=== PATIENT | male | born 1970 | race Two or more races ===

== ENCOUNTER 2025-02-02 14:50 | Emergency (ER) | payer MEDICAID, SELFPAY ==
--- OUTSIDE RECORDS SUMMARY | 2024-02-08 05:15 | XMS_ITS ---
Author Organization [facility] vices Address [address] [place], [place] [id number] Care Team Providers Care Entry Level Machine Operator Name Role Phone Trina Richardson Unavailable [phone] Chiquis Brito Unavailable [phone] REASON FOR VISIT 3 wk fu htn Social History Sex Assigned At : Social History Observation Description Sex Assigned At Male Encounters Encounter Location Date Provider Diagnosis [address] [address] 02/08/2024 Chiquis Brito Plan Of Treatment No Information Progress Notes * Brendan WILLsDOB:[birth year] (54 yo M)Acc No.[id number]:02/08/2024 Medical Note Patient: Rogelio HAMPTON :?Chiquis Brito MDDOB:1970???Age:53 Y???Sex: MaleDate:4Phone:[phone]:[address] [place] [address] Subjective: * Chief Complaints: * 1 . 3 wk fu htn. * Medical History: Objective: * Vitals: Assessment: Plan: * Treatment: * Billing Information: * Visit Code: * Procedure Codes: * Electronic signature of Chiquis Brito MD on 02/02/2025 at 03:37 PM EDTSign off status: Pending * Provider: Daniele Brito MD Date: 1 Generated for Printing/Faxing/eTransmitting on:?02/02/2025 03:37 PM EDT
--- OUTSIDE RECORDS SUMMARY | 2024-05-14 04:45 | XMS_ITS ---
Author Organization [facility] vices Address [address] [place] [id number] Care Team Providers Care Torch Cutter Name Role Phone Trina Richardson Unavailable [phone] Chiquis Brito Unavailable [phone] REASON FOR VISIT 3 mo f/u htn / hld Social History Sex Assigned At : Social History Observation Description Sex Assigned At Male Encounters Encounter Location Date Provider Diagnosis [address] [address] 05/14/2024 Chiquis Brito Plan Of Treatment No Information Progress Notes * Brendan WILLsDOB:[birth year] (54 yo M)Acc No.[id number]:05/14/2024 Patient:Rogelio LOPEZ :?Chiquis Brito MDDOB:1970???Age:53 Y???Sex: MaleDate:05/14/2024Phone:[phone]:[address] [place], [place] [address] Subjective: * Chief Complaints: * 1 . 3 mo f/u htn / hld. * Medical History: Objective: * Vitals: Assessment: Plan: * Treatment: * Billing Information: * Visit Code: * Procedure Codes: * Electronic signature of Chiquis Brito MD on 02/02/2025 at 03:37 PM EDTSign off status: Pending * Provider: Daniele Brito MD Date: 0 05/14/2024 Generated for Printing/Faxing/eTransmitting on:?02/02/2025 03:37 PM EDT
--- OUTSIDE RECORDS SUMMARY | 2024-05-16 04:45 | XMS_ITS ---
Author Organization [facility] vices Address [address] [place], [place] [phone] Care Team Providers Care Panel Edge Sealer Name Role Phone Trina Richardson Unavailable [phone] Chiquis Brito Unavailable [phone] REASON FOR VISIT 3 month f/u htn/hld Social History Sex Assigned At : Social History Observation Description Sex Assigned At Male Encounters Encounter Location Date Provider Diagnosis [address] [address] 05/16/2024 Chiquis Brito Plan Of Treatment No Information Progress Notes * Alphonse WILLpablitosDOB:[birth year] (54 yo M)Acc No.[id number]:05/16/2024 Medical Note Patient: Rogelio HAMPTON :?SEKOU IbanezOB:1970???Age:53 Y???Sex: MaleDate:05/16/2024Phone:[phone]:[address] [place], [place] [address] Subjective: * Chief Complaints: * 1 . 3 month f/u htn/hld. * Medical History: Objective: * Vitals: Assessment: Plan: * Treatment: * Billing Information: * Visit Code: * Procedure Codes: * Electronic signature of Chiquis Brito MD on 02/02/2025 at 03:37 PM EDTSign off status: Pending * Provider: Daniele Brito MD Date: 0 05/16/2024 Generated for Printing/Faxing/eTransmitting on:?02/02/2025 03:37 PM EDT
--- OUTSIDE RECORDS SUMMARY | 2025-01-27 19:06 | XMS_ITS | Encounter Summary ---
Author Organization [facility] Address [id number] [address] 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 Role Phone No Pcp, No Pcp Primary Care Provider Unavailabl e Reason for Visit * ReasonCommentsChest Pain Encounter Details DateTypeDepartmentCare Team (Latest Contact Info)Dgagmozhqgh47/20/2025 7:06 PM EDT - 01/27/2025 11:31 PM EDTEmergency [facility] [address] [place] [address] Charbel Colin MD [address] [place] [address] Musculoskeletal chest pain (Primary Dx) Discharge Disposition: Home Social History Tobacco UseTypesPacks/DayYears UsedDateSmoking Tobacco: Every DayCigarettesLast attempted to quit: 2019Smokeless Tobacco: NeverAlcohol UseStandard Drinks/Week CommentsYes0 (1 standard drink = 0.6 oz pure alcohol)occasionalChildcareAnswer Date AazffwecEsbrjdxauQibggod47/12/2019EmploymentAnswerDate RecordedEmployment Oftlbya9709/19/2018Hunger ScreeningAnswerDate RecordedWithin the past 12 months we worried whether our food would run out before we got money to buy more.Never True01/27/2025Within the past 12 months the food we bought just didn't last and we didn't have money to get more.Never True01/27/2025Purpose - LifeAnswerDate RecordedPurpose and direction in bpiaSdkuacb65/11/2021ex and Gender Information ValueDate RecordedSex Assigned at BirthNot on fileLegal EngGvvo6511/13/2014 11:40 AM EDTGender IdentityNot on fileSexual OrientationNot on filedocumented as of this encounter Last Filed Vital Signs Vital SignReadingTime TakenCommentsBlood Juksskdz143/9201/27/2025 11:31 PM EDT Ncfss047101/27/2025 11:31 PM CILXsbxbjkmghs29.7 ??C (98.1 ??F)01/27/2025 6:34 PM EDTRespiratory Tova0927 11:31 PM EDTOxygen Kpvdseqajh57%01/27/2025 11:31 PM EDTInhaled Oxygen Concentration--Rxdcys655.9 kg (260 lb)01/27/2025 6:34 PM QCTVlrlkg439.7 cm (5' 8 )01/27/2025 6:34 PM EDTBody Mass Index39.5301/27/2025 6:34 PM EDTdocumented in this encounter Discharge Instructions * Discharge Instructions* Charbel Colin MD - 01/27/2025 11:20 PM EDT Please follow up with primary care physician and action finisher documented in this encounter Medications at Time of Discharge MedicationSigDispense QuantityRefillsLast FilledStart DateEnd Date albuterol (PROVENTIL HFA;VENTOLIN HFA) 90 mcg/actuation inhaler Inhale 2 puffs every 6 (six) hours as needed for wheezing. aspirin 81 mg Take 1 tablet (81 mg total) by mouth daily. 30 tablet 08/29/2020 busPIRone (BUSPAR) 30 mg tablet Take 30 mg by mouth 2 (two) times a day. ibuprofen (MOTRIN) 600 mg tablet Take 1 tablet (600 mg total) by mouth every 8 (eight) hours as needed for pain for up to 7 days. 21 tablet latanoprost (XALATAN) 0.005 % ophthalmic solution Administer 1 drop to both eyes nightly. losartan (COZAAR) 25 mg tablet Take 25 mg by mouth daily. OLANZapine (ZyPREXA) 10 mg tablet Take 10 mg by mouth nightly. OLANZapine (ZyPREXA) 5 mg tablet Take 5 mg by mouth daily. In the morning. ondansetron ODT (ZOFRAN-ODT) 4 mg disintegrating tablet Dissolve 1 tablet (4 mg total) on tongue every 8 (eight) hours as needed for nausea for up to 10 doses. 10 tablet 1documented as of this encounter ED Notes * Ev Gonzalez APRN-FERN - 01/27/2025 7:07 PM EDT Images from the original note were not included. [facility] - EMERGENCY Pt Name: Rogelio Will Birthdate: 1970 Chief Complaint: Chief Complaint Patient presents with ??? Chest Pain History of Present Illness: Rogelio Will is a 54-year-old male that presents to ED with complaint of chest pain. Patient states it started on Monday. States that he was changing a battery in the car. He reports after that he had left-sided chest wall pain that went into his side and back. He states the pain has progressively gotten worse. He states it was worse this afternoon when he coughed therefore he came in to be evaluated. Denies any shortness of breath. Denies any nausea or vomiting. Has an ice pack on his chest at this time. History provided by: Patient print journalist used: No Past Medical History: Past Medical History: Diagnosis Date ??? Abscess ??? Alcohol abuse ??? Alcohol dependence ([facility]) ??? Anxiety ??? Bipolar disorder ([facility]) ??? Cholelithiasis ??? Costochondritis ??? Depression ??? Diverticulitis ??? Diverticulitis of colon ??? Drug abuse ([facility]) ??? GERD (gastroesophageal reflux disease) ??? Glaucoma ??? Glaucoma ??? Headache ??? Hypertension ??? Insomnia ??? Kidney stones ??? Liver hemangioma ??? Nightmares associated with chronic post-traumatic stress disorder ??? Visual impairment ??? Wound abscess Past Surgical History: Past Surgical History: Procedure Laterality Date ??? CHOLECYSTECTOMY ??? INCISION AND DRAINAGE SCROTUM N/A 08/23/2016 Performed by Boby Fletcher MD at [facility] Family History: Family History Problem Relation Age of Onset ??? Diabetes Father ??? Hypertension Father ??? Breast cancer Mother Social History: Social History Socioeconomic History ??? Marital status: Legally Tobacco Use ??? Smoking status: Every Day Current packs/day: 0.00 Types: Cigarettes Last attempt to quit: 2019 Years since quittin.8 ??? Smokeless tobacco: Never Vaping Use ??? Vaping status: Former Substance and Sexual Activity ??? Alcohol use: Yes Comment: occasional ??? Drug use: Yes Types: Cocaine Comment: last use of cocaine 2 days Other Topics Concern ??? Caffeine Use Yes Social Drivers of Health Food Insecurity: No Food Insecurity (01/27/2025) Hunger Screening ??? Food Insecurity - Worry: Never True ??? Food Insecurity - Inability: Never True Review of Systems: Review of Systems Constitutional: Negative for chills and fever. HENT: Negative for ear pain. Eyes: Negative for pain. Respiratory: Negative for shortness of breath. Cardiovascular: Positive for chest pain/discomfort. Gastrointestinal: Negative for abdominal pain, diarrhea, nausea and vomiting. Genitourinary: Negative for flank pain. Musculoskeletal: Negative for back pain. Skin: Negative for rash. Neurological: Negative for headaches. Psychiatric/Behavioral: Negative for sleep disturbance and suicidal ideas. Physical Exam: ED Triage Vitals [01/27/251833] Temp Heart Rate Resp BP SpO2 36.7 ??C (98.1 ??F) 92 19 (!) 168/103 97 % Temp Source Heart Rate Source Patient Position BP Location FiO2 (%) Oral -- Sitting Left arm -- Vitals: 01/27/251833 BP: (!) 168/103 Temp: 36.7 ??C (98.1 ??F) TempSrc: Oral Pulse: 92 Resp: 19 SpO2: 97% MAP (mmHg): 121 Height: 172.7 cm (5' 8 ) Weight: 117.9 kg (260 lb) Physical Exam Vitals reviewed. HENT: Head: Normocephalic and atraumatic. Eyes: Conjunctiva/sclera: Conjunctivae normal. Cardiovascular: Rate and Rhythm: Normal rate and regular rhythm. Pulmonary: Effort: Pulmonary effort is normal. Breath sounds: Normal breath sounds. Abdominal: General: There is no distension. Palpations: Abdomen is soft. Musculoskeletal: General: Normal range of motion. Cervical back: Normal range of motion and neck supple. Skin: General: Skin is warm and dry. Neurological: General: No focal deficit present. Mental Status: He is alert and oriented to person, place, and time. GCS: GCS eye subscore is 4. GCS verbal subscore is 5. GCS motor subscore is 6. Procedure: Procedures Re-evaluation: Re-Evaluation Medical Decision Making Plan of care - EKG, imaging, labs, urine, pain management Amount and/or Complexity of Data Reviewed Labs: ordered. Decision-making details documented in ED Course. Radiology: ordered. Decision-making details documented in ED Course. ECG/medicine tests: ordered. Decision-making details documented in ED Course. Risk Prescription drug management. ED Course: ED Course as of 01/27/252317Jan 27, 20251899 I reviewed the EKG: Sinus rhythm, rate 92, NY 172, QTC 447. No ST or T-wave changes to indicate acute ischemia at this time. [NM] 2012 Patient is 54 years old male presented for left chest pain evaluation that started 2 days ago when he sneezed. Patient stated the pain is continuous. Patient stated the pain increase with left arm movement. Physical examination: Left anterior ribcage tenderness. [NM] 2151 I reviewed the EKG: Sinus rhythm, rate 95, NY 187, QTC 438. [NM] 2315 CT chest: No active process [NM] 2315 Troponin within normal limits [NM] 2315 Dimer within normal limits [NM] 2317 Discussed workup results with the patient. Patient stated he is feeling much better. Pain resolved. Patient requested to be discharged. Patient will be discharged home with Motrin. [NM] ED Course User Index [NM] Charbel Colin MD Clinical Impressions as of 01/27/258 Musculoskeletal chest pain . ED Disposition None Shared/Split Visit 20:11 EDT Svetlana Oropeza (scribe), scribed for and in the presence of: Charbel Colin MD who performed the above service. IDr. Colin personally performed a xzgb-pd-xqee diagnostic evaluation on this patient. I personally made and approved the management plan for this patient and take responsibility for the patient management. Additional Notes/Findings: Rogelio Will is a 54 y.o. male presenting to the ED for chief complaint of chest pain that started Monday morning. He changed the car battery and heard a pop. Dr. Colin suggest getting an image of the pts ribs. Exam findings as follows: Constitutional: Awake and alert HENT: Head normocephalic and atraumatic Eyes: conjunctiva unremarkable Cardiovascular: Heart rate regular Pulmonary: Easy work of breathing, speaking full sentences Abdominal: Flat and non-distended Skin: Warm and dry Musculoskeletal: Moving all extremities spontaneously. Pain when moving left arm above head. Tenderness to left ribs Neurological: alert and oriented x3 Please note that portions of this note were completed with a voice recognition program. Efforts were made to edit the dictations but occasionally words are mis-transcribed. TATYANA Evans 01/27/251910 TATYANA Evans 01/27/251916 Svetlana Wilder 01/27/252012 Svetlana Wilder 01/27/252013 TATYANA Evans 01/29/25 1610 * Breezy Pyle - 01/27/2025 6:38 PM EDT Pt states he was working on a car Monday when his chest started hurting. It has gotten worse since then documented in this encounter Plan of Treatment Not on file documented as of this encounter Goals GoalPatient Goal TypeAssociated ProblemsRecent ProgressPatient-Stated?Author Kerri Ordonez dc, LSW Note: Evaluation of progress towards goal: Dakota arias transition from hospital to home with family support. documented as of this encounter Procedures Procedure NamePriorityDate/TimeAssociated DiagnosisCommentsER EXTRA URINE MARBLE STAT1 10:29 PM EDT ER EXTRA URINE UWELCFHHNPJ96/20/2025 10:29 PM EDT ER EXTRA OTZAWLIHQ85/20/2025 10:29 PM EDT POCT NURSING URINE MACROSCOPIC IZLmdaxcv33/20/2025 10:[address] CHEST W ZFLZKLWY05/20/2025 10:24 PM EDT XR RIBS LT 2 QFHHCYQ78/20/2025 8:28 PM EDT TROP I, HIGH SENSITIVITY 1 ADBBUZLJ83/20/2025 8:16 PM EDT XR CHEST 1 SJSJZR2101/27/2025 7:26 PM EDT TROPONIN I, HIGH SENSITIVITY 0 ORABXLZF81/20/2025 7:16 PM EDT TROPONIN I, HIGH SENSITIVITY 0 WFSOVTLR99/20/2025 7:16 PM EDT FHOXUCMK41/20/2025 7:16 PM EDT PROTIME & EOUGHMA8801/27/2025 7:16 PM EDT D-AIBIYCQUZ10/20/2025 7:16 PM EDT SYGOJOGPTVKVF34/20/2025 7:16 PM EDT CEWVVWOUJO21/20/2025 7:16 PM EDT COMPREHENSIVE METABOLIC RCDHNUQTA42/20/2025 7:16 PM EDT CBC WITH AUTO AZGVLNDYNPYPRORG66/20/2025 7:15 PM EDT B-TYPE NATRIURETIC HKCBSQGKPFZ62/20/2025 7:15 PM EDT documented in this encounter Results * Extra Urine Crystal (01/27/2025 10:29 PM EDT)ComponentValueRef RangeTest Method Analysis TimePerformed AtPathologist SignatureExtra TubeAuto Resulted 01/28/2025 12:02 AM [facility] (Source) Anatomical Location / LateralityCollection Method / VolumeCollection Time Received TimeUrineUrine specimen collection, clean catch / Rqxtubv4601/27/2025 10:29 PM EDT1 10:51 PM EDT Narrative Authorizing ProviderResult TypeResult StatusAmber Carlos ASSOCIATE TEAM PHYSICIAN-CNPURINE ORDERABLESFinal ResultPerforming OrganizationAddressCity/State/ZIP CodePhone Number [address] [place] [address], [place] * Extra Urine Culture (01/27/2025 10:29 PM EDT)ComponentValueRef RangeTest MethodAnalysis TimePerformed AtPathologist SignatureExtra TubeAuto Resulted 01/28/2025 12:02 AM EDCh[facility] (Source) Anatomical Location / LateralityCollection Method / VolumeCollection Time Received TimeUrineUrine specimen collection, clean catch / Idtcvau3901/27/2025 10:29 PM EDT1 10:51 PM EDT Narrative Authorizing ProviderResult TypeResult StatusAmber Carlos ASSOCIATE TEAM PHYSICIAN-CNPURINE ORDERABLESFinal ResultPerforming OrganizationAddressty/State/ZIP CodePhone Number [address] [place] [address], [place] * Extra Urine (01/27/2025 10:29 PM EDT)ComponentValueRef RangeTest Method Analysis TimePerformed AtPathologist SignatureExtra TubeAuto Resulted 01/28/2025 12:02 AM EDCh[facility] (Source) Anatomical Location / LateralityCollection Method / VolumeCollection Time Received TimeUrineUrine specimen collection, clean catch / Vbmyjym7801/27/2025 10:29 PM EDT1 10:52 PM EDT Narrative Authorizing ProviderResult TypeResult StatusAmber Gonzalez ASSOCIATE TEAM PHYSICIAN-CNPURINE ORDERABLESFinal ResultPerforming OrganizationAddressty/State/ZIP CodePhone Number [address] [place] [address], [place] * (ABNORMAL) POCT Nursing Urine Macroscopic UA (01/27/2025 10:28 PM EDT) ComponentValueRef RangeTest MethodAnalysis TimePerformed AtPathologist [facility] Urine Specific Gravity1.0201.010, 1.015, 1.020, 1.2715701/27/2025 10:29 PM [facility] Urine Leukocyte Esterase FjbhhjyiScgqltoy23/20/2025 10:29 PM EDPRE[facility] Urine ZuvlxuxYizryoypMdwqxewm32/20/2025 10:29 PM [facility] Urine pH6.55.0, 6.0, 6.5, 7.0, 7.5, 8.0, 8.5, 5. 10:29 PM [facility] Urine Ytupmae12 mg/dL(A)Negative 01/27/2025 10:29 PM EDPRE[facility] Urine Glucose HaswomguCgweuxyd63/20/2025 10:29 PM [facility] Urine KetonesTrace(A)Tljahqvx40/20/2025 10:29 PM [facility] Urine Urobilinogen2.0 E.U./dL01/27/2025 10:29 PM EDPRE[facility] Urine XaxuodoydUjdwwxluUtnwmjcj90/20/2025 10:29 PM [facility] Urine Blood/HGBNegativeNegative 01/27/2025 10:[address] [facility] (Source) Anatomical Location / LateralityCollection Method / VolumeCollection Time Received KaivBkxft84/20/2025 10:28 PM EDT1 10:29 PM EDT Narrative Authorizing ProviderResult TypeResult StatusNahil H Cristi MDPOINT OF CARE TEST ORDERABLESFinal ResultPerforming OrganizationAddressCity/State/ZIP CodePhone Number [facility] [address] [place] [address], [place] * CT chest with contrast (01/27/2025 10:24 PM EDT)Anatomical RegionLaterality ModalityBody, Lung, Chest, Body CoveraN/AComputed TomographySpecimen (Source) Anatomical Location / LateralityCollection Method / VolumeCollection Time Received Time01/27/2025 10:41 PM EDT Narrative 01/27/2025 10:43 PM EDT STUDY: CT chest with contrast CLINICAL HISTORY: Acute chest pain chest pain COMPARISON: 08/28/2020 TECHNIQUE: CT chest was performed utilizing 5 mm axial reconstructions following the uneventful administration of 100 cc Omnipaque 300 nonionic intravenous contrast. Coronal and sagittal reformatted images were obtained and reviewed. Automated exposure control was utilized. FINDINGS: No pleural or pericardial effusion. No enlarged axillary, mediastinal or hilar lymph nodes. Atherosclerotic thoracic aorta. Mild coronary artery calcifications. Dependent changes and atelectasis in both lungs. There is no pneumothorax. The central airway appears be patent. Hypervascular lesion in the anterior left hepatic lobe which could represent transient hepatic attenuation difference or flash filling hemangioma. Small right hepatic cyst. No vertebral body height loss. Degenerative changes of the spine. Probable small nonobstructing left renal calculi. IMPRESSION: 1. No definitive acute cardiopulmonary process. All CT scans at this facility use dose modulation, iterative reconstruction, and/or weight based dosing when appropriate to reduce radiation dose to as low as reasonably achievable. Finalized by Aravind Dugan MD on 01/27/2025 10:43 PM Procedure Note Aravind Dugan MD - 01/27/2025 STUDY: CT chest with contrast CLINICAL HISTORY: Acute chest pain chest pain COMPARISON: 08/28/2020 TECHNIQUE: CT chest was performed utilizing 5 mm axial reconstructionsfollowing the uneventful administration of 100 cc Omnipaque 300 nonionicintravenous contrast. Coronal and sagittal reformatted images wereobtained and reviewed. Automated exposure control was utilized. FINDINGS: No pleural or pericardial effusion. No enlarged axillary, mediastinal orhilar lymph nodes. Atherosclerotic thoracic aorta. Mild coronary artery calcifications. Dependent changes and atelectasis in both lungs. There is no pneumothorax.The central airway appears be patent. Hypervascular lesion in the anterior left hepatic lobe which couldrepresent transient hepatic attenuation difference or flash fillinghemangioma. Small right hepatic cyst. No vertebral body height loss. Degenerative changes of the spine. Probable small nonobstructing left renal calculi. IMPRESSION: 1. No definitive acute cardiopulmonary process. All CT scans at this facility use dose modulation, iterativereconstruction, and/or weight based dosing when appropriate to reduceradiation dose to as low as reasonably achievable. Finalized by Aravind Dugan MD on 01/27/2025 10:43 PM Authorizing ProviderResult TypeResult StatusAmber [facility] ORDERABLESFinal Result * X-ray ribs left 2 views (01/27/2025 8:28 PM EDT)Anatomical RegionLaterality ModalityMSK, ChestLeftComputed RadiographySpecimen (Source)Anatomical Location / LateralityCollection Method / VolumeCollection TimeReceived Time01/27/2025 9:08 PM EDT Addenda Addendum by Colten Wood MD on 01/27/2025 9:20 PM EDT *ADDENDUM*Images are further reviewed. Further reviewed of the images reveal overlapping of the left third rib laterally which appears to be overlying the scapula. This could be a fracture of the indeterminate age. Findings were discussed with the ER physician. I advised to perform CT scan of the chest with contrast for further evaluation of the fracture and any vascular injury. Finalized by Colten Wood MD on 01/27/2025 9:20 PM Narrative 01/27/2025 9:10 PM EDT HISTORY: A 54-year-old male with a history of the left-sided upper rib pain. TECHNIQUE: ??Left rib cage: 2 views COMPARISON: ??Comparison is made with the right rib cage of 03/02/2020. FINDINGS: AP and oblique views of the left rib cage reveal no fractures or acute bony pathology. ??Left rib cage is intact. Visualized both lungs are clear. Costophrenic angles are clear. IMPRESSION: * ??No evidence of fracture or acute bony pathology in the left rib cage. Finalized by Colten Wood MD on 01/27/2025 9:10 PM Procedure Note Colten Wood MD - 01/27/2025 HISTORY: A 54-year-old male with a history of the left-sided upper ribpain. TECHNIQUE: Left rib cage: 2 views COMPARISON: Comparison is made with the right rib cage of 03/02/2020. FINDINGS: AP and oblique views of the left rib cage reveal no fractures oracute bony pathology. Left rib cage is intact. Visualized both lungs are clear. Costophrenic angles are clear. IMPRESSION: * No evidence of fracture or acute bony pathology in the left rib cage. Finalized by Colten Wood MD on 01/27/2025 9:10 PM Authorizing ProviderResult TypeResult StatusAmber Carlos SHI-CNPIMG DIAGNOSTIC IMAGING ORDERABLESEdited Result - Final * Troponin I, High Sensitivity 1 Hour (01/27/2025 8:16 PM EDT)ComponentValueRef RangeTest MethodAnalysis TimePerformed AtPathologist SignatureTROPONIN I, HIGH SENSITIVITY4<21 ng/L1 8:48 PM EDTPROMEDSAN FRANC[facility]CO [facility] Specimen (Source)Anatomical Location / LateralityCollection Method / Volume Collection TimeReceived TimeBloodVenous blood / UnknownVenipuncture / Unknown 01/27/2025 8:16 PM EDT1 8:20 PM EDT Narrative Authorizing ProviderResult TypeResult StatusAmber Carlos SHI-CNPLAB BLOOD ORDERABLESFinal ResultPerforming OrganizationAddressCity/State/ZIP CodePhone Number [facility] [address] [place] [address], * X-ray chest 1 view (01/27/2025 7:26 PM EDT)Anatomical RegionLateralityModality Body, ChestN/AComputed RadiographySpecimen (Source)Anatomical Location / LateralityCollection Method / VolumeCollection TimeReceived Time01/27/2025 7:41 PM EDT Narrative 01/27/2025 7:46 PM EDT XR CHEST 1 VW HISTORY: Chest pain COMPARISON: 01/15/2024 FINDINGS: Patient is rotated to the right. Apical lordotic patient positioning. No pleural effusion, pneumothorax, or focal airspace opacification. Mildly enlarged cardiac mediastinal silhouette. IMPRESSION: * ??No evidence for acute pulmonary process. * ??Mildly enlarged cardiomediastinal silhouette, likely exaggerated by patient positioning and portable technique. Approved by Resident: Ulises Cross MD ??on 01/27/2025 7:41 PM Colten Oropeza MD have personally reviewed the image(s) and agree with and/or edited the report Finalized by Colten Wood MD on 01/27/2025 7:46 PM Procedure Note Colten Wood MD - 01/27/2025 XR CHEST 1 VW HISTORY: Chest pain COMPARISON: 01/15/2024 FINDINGS: Patient is rotated to the right. Apical lordotic patient positioning. No pleural effusion, pneumothorax, or focal airspace opacification. Mildly enlarged cardiac mediastinal silhouette. IMPRESSION: * No evidence for acute pulmonary process. * Mildly enlarged cardiomediastinal silhouette, likely exaggerated bypatient positioning and portable technique. Approved by Resident: Ulises Cross MD on 01/27/2025 7:41PM Colten Oropeza MD have personally reviewed the image(s) and agree withand/or edited the report Finalized by Colten Wood MD on 01/27/2025 7:46 PM Authorizing ProviderResult TypeResult StatusAmber Carlos ASSOCIATE TEAM PHYSICIAN-CNPIMG DIAGNOSTIC IMAGING ORDERABLESFinal Result * Troponin I, High Sensitivity 0 Hour (01/27/2025 7:16 PM EDT)ComponentValueRef RangeTest MethodAnalysis TimePerformed AtPathologist SignatureTROPONIN I, HIGH SENSITIVITY3<21 ng/L1 7:53 PM EDTPROMEDICA [facility] Specimen (Source)Anatomical Location / LateralityCollection Method / Volume Collection TimeReceived TimeBloodVenous blood / UnknownVenipuncture / Unknown 01/27/2025 7:16 PM EDT1 7:17 PM EDT Narrative Authorizing ProviderResult TypeResult StatusAmber Carlos ASSOCIATE TEAM PHYSICIAN-CNPLAB BLOOD ORDERABLESFinal ResultPerforming OrganizationAddressCity/State/ZIP CodePhone Number [facility] [address] [place] [address], * Magnesium (01/27/2025 7:16 PM EDT)ComponentValueRef RangeTest MethodAnalysis TimePerformed AtPathologist SignatureMAGNESIUM2.11.8 - 2.6 mg/dL01/27/2025 7:45 PM EDST. RITA'S HOSPITALpecimen (Source)Anatomical Location / LateralityCollection Method / VolumeCollection TimeReceived Time BloodVenous blood / UnknownVenipuncture / Czxhmqg8401/27/2025 7:16 PM EDT 01/27/2025 7:17 PM EDT Narrative Authorizing ProviderResult TypeResult StatusAmber Gonzalez ASSOCIATE TEAM PHYSICIAN-CNPLAB BLOOD ORDERABLESFinal ResultPerforming OrganizationAddressty/State/ZIP CodePhone Number [address] [place] [address], * Lipase (01/27/2025 7:16 PM EDT)ComponentValueRef RangeTest MethodAnalysis Time Performed AtPathologist SlttdxobnBOPEMX4280 - 40 U/L1 7:42 PM EDT [facility] (Source)Anatomical Location / LateralityCollection Method / VolumeCollection TimeReceived TimeBloodVenous blood / UnknownVenipuncture / Egwwgxx2601/27/2025 7:16 PM EDT1 7:17 PM EDT Narrative Authorizing ProviderResult TypeResult StatusAmber Gonzalez ASSOCIATE TEAM PHYSICIAN-CNPLAB BLOOD ORDERABLESFinal ResultPerforming OrganizationAddJefferson Hospital/[facility] CodePhone Number [address] [place] [address], [place] * D-Dimer (01/27/2025 7:16 PM EDT)ComponentValueRef RangeTest MethodAnalysis TimePerformed AtPathologist SignatureD [id number] - 255 ng/mL01/27/2025 7:29 PM EDFIRELANDS REGIONAL MED[facility]OUTH CAMPUSComment:Results <255 ng/mL DDU: The presensence of a VTE can safely be excluded with a negative D-Dimer result and Wells score. A negative result doesn't exclude the possibility of DIC. The test should berepeated along with other diagnostic tests if the patient's symptoms persist or worsen.Specimen (Source)Anatomical Location / Laterality Collection Method / VolumeCollection TimeReceived TimeBloodVenous blood / UnknownVenipuncture / Ostqfep1101/27/2025 7:16 PM EDT1 7:17 PM EDT Narrative Authorizing ProviderResult TypeResult StatusAmber Carlos ASSOCIATE TEAM PHYSICIAN-CNPLAB BLOOD ORDERABLESFinal ResultPerforming OrganizationAddressCity/State/ZIP CodePhone Number [address] [place] [address], * APTT (01/27/2025 7:16 PM EDT)ComponentValueRef RangeTest MethodAnalysis Time Performed AtPathologist OiouzfxegEAXG6699 - 37 sec01/27/2025 7:29 PM EDT [facility] (Source)Anatomical Location / LateralityCollection Method / VolumeCollection TimeReceived TimeBloodVenous blood / UnknownVenipuncture / Ppedema8501/27/2025 7:16 PM EDT1 7:17 PM EDT Narrative Authorizing ProviderResult TypeResult StatusAmber Gonzalez ASSOCIATE TEAM PHYSICIAN-CNPLAB BLOOD ORDERABLESFinal ResultPerforming OrganizationAddressCity/State/ZIP CodePhone Number [address] [place] [address], * Protime & INR (01/27/2025 7:16 PM EDT)ComponentValueRef RangeTest Method Analysis TimePerformed AtPathologist UznbdejdmABSQVCT42.09.8 - 13.2 sec 01/27/2025 7:29 PM EDFIRELANDS REGIONAL MEDICAL CENTER SOUTH CAMPUSINR1.00.9 - 1.2 01/27/2025 7:29 PM [facility] (Source) Anatomical Location / LateralityCollection Method / VolumeCollection Time Received TimeBloodVenous blood / UnknownVenipuncture / Qzslrbv2501/27/2025 7:16 PM EDT1 7:17 PM EDT Narrative Authorizing ProviderResult TypeResult StatusAmber Gonzalez ASSOCIATE TEAM PHYSICIAN-CNPLAB BLOOD ORDERABLESFinal ResultPerforming OrganizationAddressCity/State/ZIP CodePhone Number [address] [place] [address], * (ABNORMAL) Comprehensive metabolic panel (01/27/2025 7:16 PM EDT)Component ValueRef RangeTest MethodAnalysis TimePerformed AtPathologist SignatureSODIUM [id number] - 146 mmol/L1 7:45 PM EDTPTRIHEALTH POTASSIUM3.93.5 - 5.0 mmol/L1 7:45 PM EDFIRELANDS REGIONAL MEDICAL C[facility] SOUTH CAMPUSCHLORIDE10398 - 109 mmol/L1 7:45 PM EDFIRELANDS REGIONAL MEDICAL [facility] SOUTH CAMPUSCARBON VEXQRYZ3062 - 32 mmol/L1 7:45 PM EDFIRELANDS REGIONAL MED[facility] SOUTH CAMPUSANION ZHF129 - 15 mmol/L1 7:45 PM EDT [facility]ENTERBLOOD UREA JNSDKPVR681 - 23 mg/dL01/27/2025 7:45 PM EDFIRELANDS REGIONAL MEDICAL C[facility] SOUTH CAMPUSCREATININE0.860.70 - 1.20 mg/dL 01/27/2025 7:45 PM [facility]Comment:METHOD TRACEABLE TO IDMS JURMPZWFFVGUZZO541(H)65 - 99 mg/dL01/27/2025 7:45 PM EDT [facility] CENTERCALCIUM8.78.5 - 10.5 mg/dL01/27/2025 7:45 PM EDFIRELANDS REGIONAL MEDICAL [facility] SOUTH CAMPUSTOTAL PROTEIN7.66.0 - 8.0 g/dL 01/27/2025 7:45 PM EDFIRELANDS REGIONAL MEDICAL CENTER SOUTH CAMPUSALBUMIN4.03.2 - 5.3 g/dL01/27/2025 7:45 PM EDFIRELANDS REGIONAL MED[facility] C[facility] SOUTH CAMPUSALKALINE TSVQTYLHZBE72170 - 130 U/L1 7:45 PM [facility]ITALAST30<=41 U/L1 7:45 PM EDFIRELANDS [facility]US ALT41(H)<=40 U/L1 7:45 PM [facility] BILIRUBIN,TOTAL0.40.3 - 1.2 mg/dL01/27/2025 7:45 PM EDFIRELANDS REGIONAL MEDICAL CENTER SOUTH CAMPUSEGFR Non-Race Dependent>90>=60 ml/min/1.73sq.m1 7:45 PM [facility]ITALComment: eGFR not reported due to non-numeric value for Creatinine. Reported eGFR is based on the CKD-EPI 2020 equation that does not use a race coefficient. Specimen (Source)Anatomical Location / LateralityCollection Method / Volume Collection TimeReceived TimeBloodVenous blood / UnknownVenipuncture / Unknown 01/27/2025 7:16 PM EDT1 7:17 PM EDT Narrative Authorizing ProviderResult TypeResult StatusAmber Carlos ASSOCIATE TEAM PHYSICIAN-CNPLAB BLOOD ORDERABLESFinal ResultPerforming OrganizationAddressCity/State/ZIP CodePhone Number [address] [place] [address], [place] * B-type natriuretic peptide (01/27/2025 7:15 PM EDT)ComponentValueRef RangeTest MethodAnalysis TimePerformed AtPathologist BceqtsyauSUH66<=100 pg/mL 01/27/2025 8:[address] [facility]pecimen (Source) Anatomical Location / LateralityCollection Method / VolumeCollection Time Received TimeBloodVenous blood / UnknownVenipuncture / Rxduweu9701/27/2025 7:15 PM EDT1 7:17 PM EDT Narrative Authorizing ProviderResult TypeResult StatusAmber Carlos CARRINGTONN-CNPLAB BLOOD ORDERABLESFinal ResultPerforming OrganizationAddressty/[facility] CodePhone Number [address] [place] [address], [place] * (ABNORMAL) CBC auto differential (01/27/2025 7:15 PM EDT)ComponentValueRef RangeTest MethodAnalysis TimePerformed AtPathologist ZsiofavlvOBO51.54 - 11 x10E9/L1 7:24 PM EDFIRELANDS REGIONAL MEDICAL CENTER SOUTH CAMPUSRBC Count5.31 4.1 - 5.7 X10E12/L1 7:24 PM EDTPTRIHEALTH Zwnbnuflam72.113 - 17 g/dL01/27/2025 7:24 PM EDTPTRIHEALTHHematocrit47.439 - 50 %01/27/2025 7:24 PM EDFIRELANDS REGIONAL MED[facility]ENTER SOUTH CAMPUSMCV8980 - 100 fL01/27/2025 7:24 PM EDFIRELANDS REGIONAL MEDICAL CENTER SOUTH CAMPUSMCH30.327 - 34 pg01/27/2025 7:24 PM EDTPTRIHEALTHMCHC34.032 - 36 g/dL01/27/2025 7:24 PM EDTPTRIHEALTHRDW14.311.5 - 15 %01/27/2025 7:24 PM EDFIRELANDS [facility] MED[facility] S[facility]TH CAMPUSPlatelet Qonss291708 - 450 X10E9/L1 7:24 PM EDT [facility]ENTERMPV9.17 - 12 fL01/27/2025 7:24 PM EDT [facility]ENTERNeutrophils %80.8%01/27/2025 7:24 PM EDT [facility] CENTERLymphocytes %10.4%01/27/2025 7:24 PM EDT [facility]ENTERMonocytes %7.5%01/27/2025 7:24 PM EDT [facility]ENTEREosinophils %0.8%01/27/2025 7:24 PM EDT [facility]ENTERBasophils %0.5%01/27/2025 7:24 PM EDT [facility] CENTERNeutrophils Absolute (A)8.5(H)1.5 - 6.6 10*3/uL01/27/2025 7:24 PM EDTPTRIHEALTHLymphocytes Absolute1.11.0 - 3.5 10*3/uL01/27/2025 7:24 PM EDTPTRIHEALTHMonocytes Absolute0.80.0 - 0.9 10*3/uL01/27/2025 7:24 PM EDTPROMEDICA FREMONT [facility]IAL HOSPITALEosinophils Absolute0.10.0 - 0.4 10*3/uL01/27/2025 7:24 PM EDFIRELANDS REGIONAL MEDICAL CENTER SOUTH CAMPUSBasophils Absolute0.00.0 - 0.2 10*3/uL01/27/2025 7:24 PM [facility]OS[facility]ITALDifferential TypeAUTOMATED RUYQGXSXTYLS17/20/2025 7:[address]ENTERpecimen (Source)Anatomical Location / LateralityCollection Method / VolumeCollection TimeReceived TimeBloodVenous blood / UnknownVenipuncture / Pkatxwx9401/27/2025 7:15 PM EDT1 7:17 PM EDT Narrative Authorizing ProviderResult TypeResult StatusAmber Carlos ASSOCIATE TEAM PHYSICIAN-CNPLAB BLOOD ORDERABLESFinal ResultPerforming OrganizationAddressCity/State/ZIP CodePhone Number [facility] [address] [place] [address], documented in this encounter Visit Diagnoses Diagnosis Musculoskeletal chest pain- Primary Other chest pain documented in this encounter Administered Medications Medication OrderMAR ActionAction DateDoseRateSite HYDROcodone-acetaminophen (NORCO) 5-325 mg per tablet 1 tablet 1 tablet, oral, Once, On Mon01/27/25 at 2139, For 1 dose, Look-alike/sound-alike medication - verify indication for use. Given01/27/2025 9:47 PM EDT1 tablet iohexoL (OMNIPAQUE) 300 mg iodine/mL 100 mL 100 mL, intravenous, Once in imaging, contrast, Starting on Mon01/27/25 at 2201, For 1 dose, VESICANT (RED) Given01/27/2025 10:09 PM PFD537 mL ketorolac (TORADOL) injection 60 mg 60 mg, intramuscular, Once, On Mon01/27/25 at 1916, For 1 dose, Look-alike/sound-alike medication - verify indication for use. Duration of therapy is not to exceed 5 days. Maximum recommended dose +120mg/24 hours. Given01/27/2025 7:47 PM EDT60 mgRight Deltoid orphenadrine (NORFLEX) injection 60 mg 60 mg, intramuscular, Once, On Mon01/27/25 at 1916, For 1 dose, If ordered IV: give over [address] patient in supine position during and for 5-10 minutes following injection. Given01/27/2025 7:47 PM EDT60 mgLeft Deltoid sodium chloride 0.9 % flush 10 mL 10 mL, intravenous, As needed, line care, Starting on Mon01/27/25 at 2201 Given01/27/2025 10:10 PM EDT10 mLdocumented in this encounter Active and Recently Administered Medications Times are shown in EDT.Medication Order/ HYDROcodone-acetaminophen (NORCO) 5-325 mg per tablet 1 tablet (COMPLETED) 1 tablet, oral, Once, On Mon01/27/25 at 213, For 1 dose, Look-alike/sound-alike medication - verify indication for use. * 2146 (Given - Provider: Nela Allan RN) ketorolac (TORADOL) injection 60 mg (COMPLETED) 60 mg, intramuscular, Once, On Mon01/27/25 at 1916, For 1 dose, Look-alike/sound-alike medication - verify indication for use. Duration of therapy is not to exceed 5 days. Maximum recommended dose +120mg/24 hours. * 1946 (Given - Provider: Nela Allan RN) orphenadrine (NORFLEX) injection 60 mg (COMPLETED) 60 mg, intramuscular, Once, On Mon01/27/25 at 1916, For 1 dose, If ordered IV: give over [address] patient in supine position during and for 5-10 minutes following injection. * 1946 (Given - Provider: Nela Allan RN) Medication Order/ iohexoL (OMNIPAQUE) 300 mg iodine/mL 100 mL (COMPLETED) 100 mL, intravenous, Once in imaging, contrast, Starting on Mon01/27/25 at 220, For 1 dose, VESICANT (RED) * 2208 (Given - Provider: Shaggy Honeycutt - Comment: lot [id number], exp 09/23/27) sodium chloride 0.9 % flush 10 mL 10 mL, intravenous, As needed, line care, Starting on Mon01/27/25 at 2201 * 2210 (Given - Provider: Shaggy Honeycutt) documented in this encounter Care Teams Team MemberRelationshipSpecialtyStart DateEnd Date No Pcp, [place] [address] PCP - GeneralFamily Gfvxztwr53/7/24documented as of this encounter
[2025-02-02 14:59] VITALS: BP 158/81; PULSE 94; TEMP 36.5; O2SAT 98; BMI 39.5
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
--- OUTSIDE RECORDS SUMMARY | 2025-02-02 15:37 | XMS_ITS | Clinical Summary ---
Author Organization [employer] Address [id number] [address] [place] [address] Care Team Providers Care Parliamentary Librarian Name Role Phone No Pcp, No Pcp Primary Care Provider Unavailabl e Allergies Active AllergyReactionsCriticalityNoted DateCommentsDivalproex SodiumItching 08/31/2020 Medications MedicationSigDispense QuantityRefillsLast FilledStart DateEnd DateStatus losartan (COZAAR) 25 mg tablet Take 25 mg by mouth daily.Active OLANZapine (ZyPREXA) 5 mg tablet Take 5 mg by mouth daily. In the morning.Active OLANZapine (ZyPREXA) 10 mg tablet Take 10 mg by mouth nightly.Active busPIRone (BUSPAR) 30 mg tablet Take 30 mg by mouth 2 (two) times a day.Active latanoprost (XALATAN) 0.005 % ophthalmic solution Administer 1 drop to both eyes nightly.Active albuterol (PROVENTIL HFA;VENTOLIN HFA) 90 mcg/actuation inhaler Inhale 2 puffs every 6 (six) hours as needed for wheezing.Active aspirin 81 mg Take 1 tablet (81 mg total) by mouth daily. 30 tablet 08/29/2020ctive ondansetron ODT (ZOFRAN-ODT) 4 mg disintegrating tablet Dissolve 1 tablet (4 mg total) on tongue every 8 (eight) hours as needed for nausea for up to 10 doses. 10 tablet 01/14/2021ctive ibuprofen (MOTRIN) 600 mg tablet Take 1 tablet (600 mg total) by mouth every 8 (eight) hours as needed for pain for up to 7 days. 21 tablet 5Active Active Problems ProblemNoted DateDiagnosed DateOlecranon bursitis of right elbow07/ Obesity (BMI 30-39.9)09/29/2020ssential jbrafnqmboud29/25/2021Chest pain 08/28/2020alculus of tpqqpr5309/13/2016 Overview (04/11/2017): 5 mm ureteral calculus on CT January 2015 and bilateral small stones. Metabolic workup 03/24 demonstrating elevated urine calcium and elevated pH, stone ca phos predominately 25 mg Hydrochlorothiazide started with no change noted on followup metabolic workup April 2015. Recommendation was increased hydrochlorothiazide further to 50 mg which he did not want to do. KUB demonstrating stable left upper pole 3 mm stone. No additional stones seen. Plan to continue hydrochlorothiazide 25 mg, recheck KUB 2 years Scrotal uzqvxrw3908/23/2016 Overview (09/13/2016): Left hemiscrotum with thickened skin on ultrasound August 21, 2016 now with progression in left hemiscrotal enlargement. I and D in OR 08/23/16 Continuing to heal well. Packing no longer needed. Plan return to work next week. Wound abscess Resolved Problems ProblemNoted DateDiagnosed DateResolved DateScrotal wall aoevthj9608/23/2016 08/24/2016 Encounters DateTypeDepartmentCare KbabWpaksnhsyza79/20/2025 7:06 PM EDT - 01/27/2025 11:31 PM EDTEmergency [facility] [address] [place] [address] Charbel Colin MD Musculoskeletal chest pain (Primary Dx) Discharge Disposition: Home01/27/2025Travelfrom Last 3 Months Immunizations ImmunizationAdministration DatesNext CeyTGET-QJR-6 (COVID-19) Vaccine, Xxhqrtkonpn19/07/2021,07/17/2020 Family History Medical HistoryRelationNameCommentsDiabetesFatherHypertensionFatherBreast cancer MotherRelationNameStatusCommentsFatherMother Social History Tobacco UseTypesPacks/DayYears UsedDateSmoking Tobacco: Every DayCigarettesLast attempted to quit: 2019Smokeless Tobacco: Never Tobacco Cessation:Ready to Q uit: Not Asked; Counseling Given: Not Answered Alcohol UseStandard Drinks/WeekCommentsYes0 (1 standard drink = 0.6 oz pure alcohol)occasionalChildcareAnswerDate NazaxgucDwkkorxyuStraxva33/12/2019 EmploymentAnswerDate MkqnnikzBxturfhdozJvpzcar00/12/2019Hunger ScreeningAnswer Date RecordedWithin the past 12 months we worried whether our food would run out before we got money to buy more.Never True01/27/2025Within the past 12 months the food we bought just didn't last and we didn't have money to get more.Never True01/27/2025Purpose - LifeAnswerDate RecordedPurpose and direction in life Dqjpvkl2605/21/2020ex and Gender InformationValueDate RecordedSex Assigned at BirthNot on fileLegal UzjGcfj5911/13/2014 11:40 AM EDTGender IdentityNot on file Sexual OrientationNot on file Last Filed Vital Signs Vital SignReadingTime TakenCommentsBlood Iaiksuum030/9201/27/2025 11:31 PM EDT Cpbwc470101/27/2025 11:31 PM BWKDyugbkkylfr67.7 ??C (98.1 ??F)01/27/2025 6:34 PM EDTRespiratory Nbud5340 11:31 PM EDTOxygen Qucpvnllkv74%01/27/2025 11:31 PM EDTInhaled Oxygen Concentration--Xfdwsd299.9 kg (260 lb)01/27/2025 6:34 PM DCSZynjmd361.7 cm (5' 8 )01/27/2025 6:34 PM EDTBody Mass Index39.5301/27/2025 6:34 PM EDT Plan of Treatment Health MaintenanceDue DateLast DoneCommentsTobacco Cnxdhcayzb25/30/1971 Depression Ozvboooyc55/30/1983Adult BMI Follow Up Plan1988Zoster (Shingles) Vaccine (1 of 2)1COVID-19 Vaccine (2024- season) 512/11/2020, 08/14/2020, 07/17/2020Influenza Rqgiboy1812/09/2024 01/07/2020, 10/01/2019Adult BMI Yclbpcmcs23Tobacco Screening DTaP,Tdap and Td Vaccines (2 - Td or Tdap)11/30/2033 12/01/2023 Goals GoalPatient Goal TypeAssociated ProblemsRecent ProgressPatient-Stated?Author Safe dc Kerri Chris LSW Note: Evaluation of progress towards goal: Safe dc transition from hospital to home with family support. Medical Devices Not on file Procedures Procedure NamePriorityDate/TimeAssociated DiagnosisCommentsER EXTRA URINE MARBLE STAT1 10:29 PM EDT ER EXTRA URINE WWLHXAJTQYM42/20/2025 10:29 PM EDT ER EXTRA USZWPRHUO88/20/2025 10:29 PM EDT POCT NURSING URINE MACROSCOPIC QJNvrqudk45/20/2025 10:[address] CHEST W RYDMMHOS42/20/2025 10:24 PM EDT XR RIBS LT 2 WNNCYRN98/20/2025 8:28 PM EDT TROP I, HIGH SENSITIVITY 1 PMVJTYDO33/20/2025 8:16 PM EDT XR CHEST 1 IYABRJ3501/27/2025 7:26 PM EDT TROPONIN I, HIGH SENSITIVITY 0 WOJZLZQF43/20/2025 7:16 PM EDT TROPONIN I, HIGH SENSITIVITY 0 XUGLMOYP49/20/2025 7:16 PM EDT KUTTFWTCCSNHH63/20/2025 7:16 PM EDT PPXJQPCOHZ01/20/2025 7:16 PM EDT D-HSWRTKQLH65/20/2025 7:16 PM EDT UXBCDAYC12/20/2025 7:16 PM EDT PROTIME & MYFWTGK7701/27/2025 7:16 PM EDT COMPREHENSIVE METABOLIC XICFSFNEM64/20/2025 7:16 PM EDT B-TYPE NATRIURETIC PRHIPDWJFFD76/20/2025 7:15 PM EDT CBC WITH AUTO CLJJQLWATJBPAGFK31/20/2025 7:15 PM EDT from Last 3 Months Results * Extra Urine [place] (01/27/2025 10:29 PM EDT)ComponentValueRef RangeTest Method Analysis TimePerformed AtPathologist SignatureExtra TubeAuto Resulted 01/28/2025 12:02 AM EDTPKing's [facility]aughters [facility] [place] (Source) Anatomical Location / LateralityCollection Method / VolumeCollection Time Received TimeUrineUrine specimen collection, clean catch / Ycqkvbq7001/27/2025 10:29 PM EDT1 10:51 PM EDT Narrative Authorizing ProviderResult TypeResult StatusAmber Carlos WEBMETHODS ARCHITECT-CNPURINE ORDERABLESFinal ResultPerforming OrganizationAddressCity/State/[facility] CodePhone Number [address] * Extra Urine Culture (01/27/2025 10:29 PM EDT)ComponentValueRef RangeTest MethodAnalysis TimePerformed AtPathologist SignatureExtra TubeAuto Resulted 01/28/2025 12:02 AM EDTPKing's Daughters [facility] [place] (Source) Anatomical Location / LateralityCollection Method / VolumeCollection Time Received TimeUrineUrine specimen collection, clean catch / Bxcnlvf9101/27/2025 10:29 PM EDT1 10:51 PM EDT Narrative Authorizing ProviderResult TypeResult StatusAmber Carlos WEBMETHODS ARCHITECT-CNPURINE ORDERABLESFinal ResultPerforming OrganizationAddressCity/State/ZIP CodePhone Number [address] [place] [address], [place] * Extra Urine (01/27/2025 10:29 PM EDT)ComponentValueRef RangeTest Method Analysis TimePerformed AtPathologist SignatureExtra TubeAuto Resulted 01/28/2025 12:02 AM EDOHIOHEALTH O'BLENESS HOSPITALpecimen (Source) Anatomical Location / LateralityCollection Method / VolumeCollection Time Received TimeUrineUrine specimen collection, clean catch / Ckszcuo2801/27/2025 10:29 PM EDT1 10:52 PM EDT Narrative Authorizing ProviderResult TypeResult StatusAmber Gonzalez WEBMETHODS ARCHITECT-CNPURINE ORDERABLESFinal ResultPerforming OrganizationAddressCity/State/ZIP CodePhone Number [address] [place] [address], [place] * (ABNORMAL) POCT Nursing Urine Macroscopic UA (01/27/2025 10:28 PM EDT) ComponentValueRef RangeTest MethodAnalysis TimePerformed AtPathologist SignatureBRATTLEBORO [facility] Urine Specific Gravity1.0201.010, 1.015, 1.020, 1.8503301/27/2025 10:29 PM EDTPCOMMUNITY REGIONAL [facility]ICAL CENTER Urine Leukocyte Esterase NxsmtglzPqhfyjcq70/20/2025 10:29 PM [facility] Urine GwfjxphAjqztkykUjmiacfw73/20/2025 10:29 PM [facility] Urine pH6.55.0, 6.0, 6.5, 7.0, 7.5, 8.0, 8.5, 5.510 10:29 PM EDTPCOMMUNITY REGIONAL MEDICAL CENTER Urine Grnutya95 mg/dL(A)Negative 01/27/2025 10:29 PM EDTPCOMMUNITY REGIONAL MEDICAL CENTER Urine Glucose LngfqcwpVrfuzcmh85/20/2025 10:29 PM EDTPCOMMUNITY REGIONAL MEDICAL [facility]ENTER Urine KetonesTrace(A)Pxspippq75/20/2025 10:29 PM EDTPCOMMUNITY REGIONAL [facility]ENTER Urine Urobilinogen2.0 E.U./dL01/27/2025 10:29 PM EDTPCOMMUNITY REGIONAL MEDICAL [facility]ENTER Urine ThmvilkzkByyowlicBwrbzogt78/20/2025 10:29 PM [facility] Urine Blood/HGBNegativeNegative 01/27/2025 10:29 PM [facility] (Source) Anatomical Location / LateralityCollection Method / VolumeCollection Time Received NgoaHyhdo82/20/2025 10:28 PM EDT1 10:29 PM EDT Narrative Authorizing ProviderResult TypeResult StatusNahil Evan Colin [facility] HOSPITALOINT OF CARE TEST ORDERABLESFinal ResultPerforming OrganizationAddressCity/State/ZIP CodePhone Number [facility] [address] [place] [address], [place] * CT chest with contrast (01/27/2025 [...] 01/27/2025 10:43 PM Authorizing ProviderResult TypeResult StatusAmber [facility] HospitalN-[facility]IMG [facility] ORDERABLESFinal Result * X-ray ribs left [...] 9:10 PM Authorizing ProviderResult TypeResult StatusAmber Carlos WEBMETHODS ARCHITECT-CNPIMG DIAGNOSTIC IMAGING ORDERABLESEdited Result - Final * Troponin I, High Sensitivity 1 Hour (01/27/2025 8:16 PM EDT)ComponentValueRef RangeTest MethodAnalysis TimePerformed AtPathologist SignatureTROPONIN I, HIGH SENSITIVITY4<21 ng/L1 8:48 PM EDTPROMEDCANYON RIDGE HOSPITAL Specimen (Source)Anatomical Location / LateralityCollection Method / Volume Collection TimeReceived TimeBloodVenous blood / UnknownVenipuncture / Unknown 01/27/2025 8:16 PM EDT1 8:20 PM EDT Narrative Authorizing ProviderResult TypeResult StatusAmber Carlos WEBMETHODS ARCHITECT-CNPLAB BLOOD ORDERABLESFinal ResultPerforming OrganizationAddressCity/State/ZIP CodePhone Number [facility] [address] [place] [address], * X-ray chest 1 view (01/27/2025 7:26 [...] 7:46 PM Authorizing ProviderResult TypeResult StatusAmber Carlos WEBMETHODS ARCHITECT-CNPIMG DIAGNOSTIC IMAGING ORDERABLESFinal Result * Troponin I, High Sensitivity 0 Hour (01/27/2025 7:16 PM EDT)ComponentValueRef RangeTest MethodAnalysis TimePerformed AtPathologist SignatureTROPONIN I, HIGH SENSITIVITY3<21 ng/L1 7:53 PM EDGENESIS [facility]OSPITAL Specimen (Source)Anatomical Location / LateralityCollection Method / Volume Collection TimeReceived TimeBloodVenous blood / UnknownVenipuncture / Unknown 01/27/2025 7:16 PM EDT1 7:17 PM EDT Narrative Authorizing ProviderResult TypeResult StatusAmber Carlos WEBMETHODS ARCHITECT-CNPLAB BLOOD ORDERABLESFinal ResultPerforming OrganizationAddressCity/State/ZIP CodePhone Number [address] [place] [address], [place] * APTT (01/27/2025 7:16 PM EDT)ComponentValueRef RangeTest MethodAnalysis Time Performed AtPathologist UctnevhygWWQM6564 - 37 sec01/27/2025 7:29 PM EDT [facility]pec[facility] (Source)Anatomical Location / LateralityCollection Method / VolumeCollection TimeReceived TimeBloodVenous blood / UnknownVenipuncture / Kqaimaa2301/27/2025 7:16 PM EDT1 7:17 PM EDT Narrative Authorizing ProviderResult TypeResult StatusAmbjacob Gonzalez WEBMETHODS ARCHITECT-CNPLAB BLOOD ORDERABLESFinal ResultPerforming OrganizationAddressCity/State/ZIP CodePhone Number [address] [place] [address], [place] * Protime & INR (01/27/2025 7:16 PM EDT)ComponentValueRef RangeTest Method Analysis TimePerformed AtPathologist YqvuflbqoEZLGXXR22.09.8 - 13.2 sec 01/27/2025 7:29 PM EDGENESIS HOSPITALINR1.00.9 - 1.2 01/27/2025 7:29 PM EDOHIOHEALTH O'BLENESS HOSPITALpecimen (Source) Anatomical Location / LateralityCollection Method / VolumeCollection Time Received TimeBloodVenous blood / UnknownVenipuncture / Gywpmlx8701/27/2025 7:16 PM EDT1 7:17 PM EDT Narrative Authorizing ProviderResult TypeResult StatusAmber Carlos WEBMETHODS ARCHITECT-CNPLAB BLOOD ORDERABLESFinal ResultPerforming OrganizationAddressCity/State/ZIP CodePhone Number [address] [place] [address], [place] * D-Dimer (01/27/2025 7:16 PM EDT)ComponentValueRef RangeTest MethodAnalysis TimePerformed AtPathologist SignatureD GDXAX0854 - 255 ng/mL01/27/2025 7:29 PM EDTPOHIOHEALTH MARION GENERAL HOSPITALComment:Results <255 ng/mL DDU: The presensence of a VTE can safely be excluded with a negative D-Dimer result and Wells score. A negative result doesn't exclude the possibility of DIC. The test should berepeated along with other diagnostic tests if the patient's symptoms persist or worsen.Specimen (Source)Anatomical Location / Laterality Collection Method / VolumeCollection TimeReceived TimeBloodVenous blood / UnknownVenipuncture / Eewltzw9401/27/2025 7:16 PM EDT1 7:17 PM EDT Narrative Authorizing ProviderResult TypeResult StatusAmbjacob Gonzalez WEBMETHODS ARCHITECT-CNPLAB BLOOD ORDERABLESFinal ResultPerforming OrganizationAddressCity/State/[facility] CodePhone Number [address] [place] [address], [place] * Magnesium (01/27/2025 7:16 PM EDT)ComponentValueRef RangeTest MethodAnalysis TimePerformed AtPathologist SignatureMAGNESIUM2.11.8 - 2.6 mg/dL01/27/2025 7:45 PM EDTPLOUIS STOKES CLEVELAND VA MEDICAL CENTERpecimen (Source)Anatomical Location / LateralityCollection Method / VolumeCollection TimeReceived Time BloodVenous blood / UnknownVenipuncture / Pcbioyb1701/27/2025 7:16 PM EDT 01/27/2025 7:17 PM EDT Narrative Authorizing ProviderResult TypeResult StatusAmber Carlos WEBMETHODS ARCHITECT-CNPLAB BLOOD ORDERABLESFinal ResultPerforming OrganizationAddressCity/State/ZIP CodePhone Number [address] [place] [address], [place] * Lipase (01/27/2025 7:16 PM EDT)ComponentValueRef RangeTest MethodAnalysis Time Performed AtPathologist ZbwblamewHMNESX4075 - 40 U/L1 7:42 PM EDT [facility]ENTERpecimen (Source)Anatomical Location / LateralityCollection Method / VolumeCollection TimeReceived TimeBloodVenous blood / UnknownVenipuncture / Fhdcczh1101/27/2025 7:16 PM EDT1 7:17 PM EDT Narrative Authorizing ProviderResult TypeResult StatusAmber Carlos WEBMETHODS ARCHITECT-CNPLAB BLOOD ORDERABLESFinal ResultPerforming OrganizationAddressCity/State/ZIP CodePhone Number [address] [place] [address], [place] * (ABNORMAL) Comprehensive metabolic panel (01/27/2025 7:16 PM EDT)Component ValueRef RangeTest MethodAnalysis TimePerformed AtPathologist SignatureSODIUM 936141 - 146 mmol/L1 7:45 PM EDGENESIS HOSPITAL POTASSIUM3.93.5 - 5.0 mmol/L1 7:45 PM EDTPOHIOHEALTH MARION GENERAL HOSPITALCHLORIDE10398 - 109 mmol/L1 7:45 PM EDGENESIS HOSPITALCARBON FUNKXVX3185 - 32 mmol/L1 7:45 PM EDTPOHIOHEALTH MARION GENERAL HOSPITALANION RNP974 - 15 mmol/L1 7:45 PM EDT [facility]ENTERBLOOD UREA FPVHFDUE514 - 23 mg/dL01/27/2025 7:45 PM EDTPOHIOHEALTH MARION GENERAL HOSPITALCREATININE0.860.70 - 1.20 mg/dL 01/27/2025 7:45 PM EDGENESIS HOSPITALComment:METHOD TRACEABLE TO IDMS DBTDJDZYDOJVBML371(H)65 - 99 mg/dL01/27/2025 7:45 PM EDT [facility] CENTERCALCIUM8.78.5 - 10.5 mg/dL01/27/2025 7:45 PM [facility]OSPITALTOTAL PROTEIN7.66.0 - 8.0 g/dL 01/27/2025 7:45 PM [facility] HOSPITALALBUMIN4.03.2 - 5.3 g/dL01/27/2025 7:45 PM [facility] HOSPITALALKALINE FBTBZTIVXPE26536 - 130 U/L1 7:45 PM [facility] HOSPITALAST30<=41 U/L1 7:45 PM [facility] ALT41(H)<=40 U/L1 7:45 PM [facility] BILIRUBIN,TOTAL0.40.3 - 1.2 mg/dL01/27/2025 7:45 PM [facility] BLAN[facility] VALLEY HOSPITALEGFR Non-Race Dependent>90>=60 ml/min/1.73sq.m1 7:45 PM [facility] HOSPITALComment: eGFR not reported due to non-numeric value for Creatinine. Reported eGFR is based on the CKD-EPI 2020 equation that does not use a race coefficient. Specimen (Source)Anatomical Location / LateralityCollection Method / Volume Collection TimeReceived TimeBloodVenous blood / UnknownVenipuncture / Unknown 01/27/2025 7:16 PM EDT1 7:17 PM EDT Narrative Authorizing ProviderResult TypeResult StatusAmber Carlos WEBMETHODS ARCHITECT-CNPLAB BLOOD ORDERABLESFinal ResultPerforming OrganizationAddressCity/State/ZIP CodePhone Number [facility] [address] [place] [address], * (ABNORMAL) CBC auto differential (01/27/2025 7:15 PM EDT)ComponentValueRef RangeTest MethodAnalysis TimePerformed AtPathologist WwdrdxsgfCVR53.54 - 11 x10E9/L1 7:24 PM [facility] HOSPITALRBC Count5.31 4.1 - 5.7 X10E12/L10/ 7:24 PM EDTPOHIOHEALTH MARION GENERAL HOSPITAL Hcvqubiomz49.113 - 17 g/dL01/27/2025 7:24 PM EDTPOHIOHEALTH MARION GENERAL HOSPITALHematocrit47.439 - 50 %01/27/2025 7:24 PM EDGENESIS HOSPITALMCV8980 - 100 fL01/27/2025 7:24 PM EDTPOHIOHEALTH MARION GENERAL HOSPITALMCH30.327 - 34 pg01/27/2025 7:24 PM EDGENESIS HOSPITALMCHC34.032 - 36 g/dL01/27/2025 7:24 PM EDTPOHIOHEALTH MARION GENERAL HOSPITALRDW14.311.5 - 15 %01/27/2025 7:24 PM EDGENESIS HOSPITALPlatelet Kusxa037039 - 450 X10E9/L1 7:24 PM EDT [facility]ENTERMPV9.17 - 12 fL01/27/2025 7:24 PM EDT [facility]ENTERNeutrophils %80.8%01/27/2025 7:24 PM EDT [facility]ENTERLymphocytes %10.4%01/27/2025 7:24 PM EDT [facility]ENTERMonocytes %7.5%01/27/2025 7:24 PM EDT [facility]ENTEREosinophils %0.8%01/27/2025 7:24 PM EDT [facility]ENTERBasophils %0.5%01/27/2025 7:24 PM EDT [facility] CENTERNeutrophils Absolute (A)8.5(H)1.5 - 6.6 10*3/uL01/27/2025 7:24 PM EDTPOHIOHEALTH MARION GENERAL HOSPITALLymphocytes Absolute1.11.0 - 3.5 10*3/uL01/27/2025 7:24 PM EDTPOHIOHEALTH MARION GENERAL HOSPITALMonocytes Absolute0.80.0 - 0.9 10*3/uL01/27/2025 7:24 PM EDGENESIS HOSPITALEosinophils Absolute0.10.0 - 0.4 10*3/uL01/27/2025 7:24 PM EDGENESIS HOSPITALBasophils Absolute0.00.0 - 0.2 10*3/uL01/27/2025 7:24 PM EDGENESIS HOSPITALDifferential TypeAUTOMATED UHORATLHCMFE76/20/2025 7:24 PM [facility] (Source)Anatomical Location / LateralityCollection Method / VolumeCollection TimeReceived TimeBloodVenous blood / UnknownVenipuncture / Qohqfda1101/27/2025 7:15 PM EDT1 7:17 PM EDT Narrative Authorizing ProviderResult TypeResult StatusAmber Carlos WEBMETHODS ARCHITECT-CNPLAB BLOOD ORDERABLESFinal ResultPerforming OrganizationAddressCity/State/ZIP CodePhone Number [address] [address], * B-type natriuretic peptide (01/27/2025 7:15 PM EDT)ComponentValueRef RangeTest MethodAnalysis TimePerformed AtPathologist YxpdtnxpdKGD40<=100 pg/mL01/27/2025 8:00 PM [facility] (Source)Anatomical Location / LateralityCollection Method / VolumeCollection TimeReceived Time BloodVenous blood / UnknownVenipuncture / Dbskocz6301/27/2025 7:15 PM EDT 01/27/2025 7:17 PM EDT Narrative Authorizing ProviderResult TypeResult StatusAmber Carlos WEBMETHODS ARCHITECT-CNPLAB BLOOD ORDERABLESFinal ResultPerforming OrganizationAddressCity/State/[facility] CodePhone Number [address] [address], from Last 3 Months Insurance Advance Directives * Full Code (Latest Code Status on File) Date ActivatedDate InactivatedComments10/21/2020 3:23 PM10/22/2020 4:40 PM * Full Code Date ActivatedDate InactivatedComments08/28/2020 1:54 PM08/28/2020 7:58 PM Care Teams Team MemberRelationshipSpecialtyStart DateEnd Date No P[place], [place] [address] [facility] Juravmba65/7/24
--- OUTSIDE RECORDS SUMMARY | 2025-02-02 15:37 | XMS_ITS | Clinical Summary ---
Author Organization [facility] Healthcare Address [address] [place] [address] Care Team Providers Care Fixture Builder Name Role Phone Unallocated, Noms Provider Primary Care Provi sae Allergies Active AllergyReactionsCriticalityNoted DateCommentsValproic AcidItching 08/31/2020 Medications MedicationSigDispense QuantityRefillsLast FilledStart DateEnd DateStatus sertraline (Zoloft) 50 MG tablet Take 50 mg by mouth in the morning.12/22/2023ctive losartan (Cozaar) 50 MG tablet Take 50 mg by mouth Daily11/28/2023ctive busPIRone (Buspar) 15 MG tablet Take 15 mg by mouth in the morning and 15 mg before bedtime.Active ARIPiprazole (Abilify) 10 MG tablet 01/14/2024ctive hydrOXYzine pamoate (Vistaril) 50 MG capsule TAKE 1 CAPSULE BY MOUTH EVERY DAY NEEDED AT BEDTIME FOR 30 DAYS12/22/2023 Active ibuprofen 800 MG tablet TAKE 1 TABLET BY MOUTH EVERY 8 HOURS IF NEEDED WITH FOOD OR MILK 30 DAYS 12/24/2023ctive Active Problems No known active problems Immunizations ImmunizationAdministration DatesNext DueInfluenza, injectable, quadrivalent, preservative free01/07/2020,01/08/2019Tdap12/01/2023 Family History Medical HistoryRelationNameCommentsDiabetesFatherHypertensionFatherCancerMother RelationNameStatusCommentsFatherAliveMotherAlive Social History Tobacco UseTypesPacks/DayYears UsedDateSmoking Tobacco: Some DaysCigarettes Smokeless Tobacco: Never Tobacco Cessation:Ready to Q uit: No; Counseling Given: Not Answered Alcohol UseStandard Drinks/WeekCommentsNot Currently0 (1 standard drink = 0.6 oz pure alcohol)Sex and Gender InformationValueDate RecordedSex Assigned at Not on fileLegal LnuObmv1806/22/2022 7:29 PM EDTGender IdentityNot on fileSexual OrientationNot on file Last Filed Vital Signs Vital SignReadingTime TakenCommentsBlood Pressure--Pulse--Temperature-- Respiratory Rate--Oxygen Saturation--Inhaled Oxygen Concentration--Agffov067 kg (265 lb)05/15/2024 2:01 PM SRZBggsry331.7 cm (5' 8 )05/15/2024 2:01 PM ESTBody Mass Index40.29005/15/2024 2:01 PM EST Plan of Treatment Health MaintenanceDue DateLast DoneCommentsCT Ygfzznakvvlf71/30/1971Colonoscopy 1970Colorectal Cancer Ywznljrhc03/30/1971FIT-DNA1970FIT1970 FOBT1970 2126Wrrpxdiwmuolb61/30/1971Influenza Vaccine (#1)509/, 01/08/2019 Insurance Care Teams Team MemberRelationshipSpecialtyStart DateEnd Date Unallocated, Noms MD Sonya [address] [place], [place] [id number] PCP - GeneralFamily Medicine05/15/24
--- OUTSIDE RECORDS SUMMARY | 2025-02-02 15:37 | XMS_ITS | Encounter Summary ---
Author Organization StyleQ tem Address [facility] [address] [place] [address] Care Team Providers Care Mortuary Operations Manager Name Role Phone No Pcp, No Pcp Primary Care Provider Unavailabl e Encounter Details DateTypeDepartmentCare Team (Latest Contact Info)Nubjbcktjfi94/20/2025Travel Social History Tobacco UseTypesPacks/DayYears UsedDateSmoking Tobacco: Every DayCigarettesLast attempted to quit: 2019Smokeless Tobacco: NeverAlcohol UseStandard Drinks/Week CommentsYes0 (1 standard drink = 0.6 oz pure alcohol)occasionalChildcareAnswer Date CbzbuulmQjijkomsoPhhfpwz89/12/2019EmploymentAnswerDate RecordedEmployment Pywokbr2209/19/2018Hunger ScreeningAnswerDate RecordedWithin the past 12 months we worried whether our food would run out before we got money to buy more.Never True01/27/2025Within the past 12 months the food we bought just didn't last and we didn't have money to get more.Never True01/27/2025Purpose - LifeAnswerDate RecordedPurpose and direction in hxwnLtrhyjc87/11/2021ex and Gender Information ValueDate RecordedSex Assigned at BirthNot on fileLegal ZezMflx4711/13/2014 11:40 AM EDTGender IdentityNot on fileSexual OrientationNot on filedocumented as of this encounter Plan of Treatment Not on file documented as of this encounter Goals GoalPatient Goal TypeAssociated ProblemsRecent ProgressPatient-Stated?Author Kerri Ordonez dc, LSW Note: Evaluation of progress towards goal: Dakota arias transition from hospital to home with family support. documented as of this encounter Visit Diagnoses Not on filedocumented in this encounter Care Teams Team MemberRelationshipSpecialtyStart DateEnd Date No Pcp, [place] [address] PCP - GeneralFawily Shpptntq47/7/24documented as of this encounter
[2025-02-02] MEDS: HYDROCODONE/ACET 5-325 MG TABLET 1 TAB PO (15:43)
== END 2025-02-02 16:46 | disposition home or self-care (01) ==
PROVIDERS: Emergency Provider Student in an Organized Health Care Education/Training Program
DX: S22.42XA Multiple fractures of ribs, left side, initial encounter for closed fracture (principal); Y09 Assault by unspecified means; I10 Essential (primary) hypertension
CPT/HCPCS: 71101; 99283

== ENCOUNTER 2025-02-08 06:55 | Emergency (ER) | payer MEDICAID, SELFPAY ==
--- OUTSIDE RECORDS SUMMARY | 2024-02-08 05:15 | XMS_ITS ---
Author Organization [facility] vices Address [address] [place] [address] [place], [place] [id number] Care Team Providers Care Steam Engineer Name Role Phone Trina Richardson Unavailable [phone] Chiquis Brito Unavailable [phone] REASON FOR VISIT 3 wk fu htn Social History Sex Assigned At : Social History Observation Description Sex Assigned At Male Encounters Encounter Location Date Provider Diagnosis [address] [address] 02/08/2024 Chiquis Brito Plan Of Treatment Next Appt Details Provider Name:Scarlet Baldwin , 02/10/2025 02:45:00 PM, [address] [place], [place], [id number], Progress Notes * Lamar WILLOB:[birth year] (54 yo M)Acc No.[id number]:02/08/2024 Medical Note Patient: Evan PADILLARogelio SAAVEDRA :?SEKOU IbanezOB:1970???Age:53 Y???Sex: MaleDate:02/08/2024hone:[phone]:[address] [place] [address] Subjective: * Chief Complaints: * 1 . 3 wk fu htn. * Medical History: Objective: * Vitals: Assessment: Plan: * Treatment: * Billing Information: * Visit Code: * Procedure Codes: * Electronic signature of Chiquis Brito MD on 02/08/2025 at 07:21 AM EDTSign off status: Pending * Provider: Daniele Brito MD Date: 1 Generated for Printing/Faxing/eTransmitting on:?02/08/2025 07:21 AM EDT
--- OUTSIDE RECORDS SUMMARY | 2024-05-14 04:45 | XMS_ITS ---
Author Organization [facility] vices Address [address] [place] [address] [place], [place] [id number] Care Team Providers Care Loan Services Professional Name Role Phone Trina Richardson Unavailable [phone] Chiquis Brito Unavailable [phone] REASON FOR VISIT 3 mo f/u htn / hld Social History Sex Assigned At : Social History Observation Description Sex Assigned At Male Encounters Encounter Location Date Provider Diagnosis [address] [address] 05/14/2024 Chiquis Brito Plan Of Treatment Next Appt Details Provider Name:Scarlet Baldwin , 02/10/2025 02:45:00 PM, [address] [facility] [place] [id number], Progress Notes * Brendan WILLsDOB:[birth year] (54 yo M)Acc No.[id number]:05/14/2024 Patient:?Rogelio WILL :?Chiquis Brito MDDOB:1970???Age:53 Y???Sex: MaleDate:05/14/2024Phone:[phone]:[address] [place] [address] Subjective: * Chief Complaints: * 1 . 3 mo f/u htn / hld. * Medical History: Objective: * Vitals: Assessment: Plan: * Treatment: * Billing Information: * Visit Code: * Procedure Codes: * Electronic signature of Chiquis Brito MD on 02/08/2025 at 07:21 AM EDTSign off status: Pending * Provider: Daniele Brito MD Date: 0 05/14/2024 Generated for Printing/Faxing/eTransmitting on:?02/08/2025 07:21 AM EDT
--- OUTSIDE RECORDS SUMMARY | 2024-05-16 04:45 | XMS_ITS ---
Author Organization [facility] vices Address [address] [facility] [place] [id number] Care Team Providers Care Tinner Helper Name Role Phone Trina Richardson Unavailable [phone] Chiquis Brito Unavailable [phone] REASON FOR VISIT 3 month f/u htn/hld Social History Sex Assigned At : Social History Observation Description Sex Assigned At Male Encounters Encounter Location Date Provider Diagnosis [address] [address] 05/16/2024 Chiquis Brito Plan Of Treatment Next Appt Details Provider Name:Scarlet Baldwin , 02/10/2025 02:45:00 PM, [address] [facility] [place] [id number], Progress Notes * Brendan WILLsDOB:[birth year] (54 yo M)Acc No.[id number]:05/16/2024 Medical Note Patient: Evan Rogelio WIGGINS :?Chiquis Brito MDDOB:1970???Age:53 Y???Sex: MaleDate:05/16/2024Phone:[phone]:[address] [place] [address] Subjective: * Chief Complaints: * 1 . 3 month f/u htn/hld. * Medical History: Objective: * Vitals: Assessment: Plan: * Treatment: * Billing Information: * Visit Code: * Procedure Codes: * Electronic signature of Chiquis Brito MD on 02/08/2025 at 07:21 AM EDTSign off status: Pending * Provider: Daniele Brito MD Date: 0 05/16/2024 Generated for Printing/Faxing/eTransmitting on:?02/08/2025 07:21 AM EDT
[2025-02-08 07:02] VITALS: BP 152/120; PULSE 117; TEMP 36.9; O2SAT 98; BMI 39.5
--- NOTE | 2025-02-08 07:08 | US_ITS ---
The [address] [address] Patient Name: DANIEL FRANCIS MRN: [id number] date: 1970 Sex: M Assigned Patient Location: ED.MAIN Current Patient Location: ED.MAIN Accession/Order Number: [id number] Exam Date: 02/08/2025 07:55 Report Date: 02/08/2025 09:14 At the request of: JAGJIT FERNANDEZ Procedure: US scrotum Scrotal ultrasound. INDICATION: Testicular pain and swelling, lump with possible purulent material COMPARISON: None FINDINGS: Right testicle 5.0 x 2.6 x 3.0 cm in size. Left testicle 5.0 x 2.3 x 6 3.0 cm in size. Testicles are homogeneous in echotexture with normal color arterial and venous vascular flow. Right-sided varicocele. Unremarkable epididymis. Small hydroceles.. At the site of clinical concern, there is focal skin thickening with increased vascularity without definite loculated collection. US/US scrotum IMPRESSION: Negative for testicular torsion or suspicious testicular mass lesion. Suspected areas of phlegmon/cellulitis at the site of clinical concern. No loculated abscess identified at this time. Impression dictated by: Néstor Mcdonough M.D. 02/08/2025 9:14 AM Dictation Location: [place] [address] Electronically authenticated by: [id number] Y Date: 02/08/2025 09:14
--- OUTSIDE RECORDS SUMMARY | 2025-02-08 07:21 | XMS_ITS | Clinical Summary ---
Author Organization [facility] Healthcare Address [address] [place] [address] Care Team Providers Care Instructor Painting Name Role Phone Unallocated, Noms Provider Primary [...] InformationValueDate RecordedSex Assigned at Not on fileLegal RdoZfyg9706/22/2022 7:29 PM EDTGender IdentityNot on fileSexual OrientationNot on file Last Filed Vital Signs Vital SignReadingTime TakenCommentsBlood Pressure--Pulse--Temperature-- Respiratory Rate--Oxygen Saturation--Inhaled Oxygen Concentration--Aopwnc152 kg (265 lb)05/15/2024 2:01 PM BGCAtagzo139.7 cm (5' 8 )05/15/2024 2:01 PM ESTBody Mass Index40.29005/15/2024 2:01 PM EST Plan of Treatment Health MaintenanceDue DateLast DoneCommentsCT Tsdddovsdtty57/30/1971Colonoscopy 1970Colorectal Cancer Exoeljbqt42/30/1971FIT-DNA1970FIT1970 FOBT1970 2055Krrqcyxishylo39/30/1971Influenza Vaccine (#1)509/, 01/08/2019 Insurance Care Teams Team MemberRelationshipSpecialtyStart DateEnd Date Unallocated, Noms MD Sonya [address] [place], [place] [id number] PCP - GeneralFamily Medicine05/15/24
[2025-02-08 07:46] LABS: Hematocrit 43.6 % (42.0-54.0); Hemoglobin 14.9 g/dL (14.0-18.0); Immature Granulocytes Abs Auto 0.05 10^3/uL (0.00-0.03); Immature Granulocytes Pct Auto 0.4 % (0.0-0.5); Lymphocytes Absolute Auto 1.3 10^3/uL (1.2-3.8); Mean Corpuscular HGB Conc 34.2 g/dL (29.9-35.2); Mean Corpuscular Hemoglobin 31.0 pg (25.9-34.0); Mean Corpuscular Volume 90.6 fL (80.0-94.0); Platelet Count 245 10^3/uL (150-450); Red Blood Count 4.81 10^6/uL (4.70-6.10); White Blood Count 12.0 10^3/uL (4.0-11.0)
[2025-02-08 07:54] LABS: Anion Gap 15.1; Blood Urea Nitrogen 4.0 mg/dL (7.0-18.0); Calcium 8.6 mg/dL (8.5-10.1); Carbon Dioxide 24.3 mmol/L (21.0-32.0); Chloride 104 mmol/L (98-107); Estimated GFR (African America >60 (>=60 mL/min/1.73m^2); Estimated GFR (Non-African Ame >60 (>=60 mL/min/1.73m^2); Glucose 112 mg/dL (74-106); Potassium 3.4 mmol/L (3.5-5.1); Sodium 140 mmol/L (136-145)
[2025-02-08 08:02] LABS: Lactate/Lactic Acid 1.8 mmol/L (0.4-2.0)
--- NOTE | 2025-02-08 09:25 | ED.GENADUL1 ---
HPI HPI - General Adult General Chief complaint: Skin/Abscess/Foreign Body Stated complaint: TESTICLE PAIN/SWELLING Time Seen by Provider: 02/08/25 06:59 Source: patient Mode of arrival: walk-in History of Present Illness HPI narrative: cc - scrotal redness and drainage Yesterday the patient noted a painful spot on the underside of the scrotum and last night it drained some fluid. He decided to come in this morning for evaluation. He previously had scrotal abscess that a surgeon in [place] removed. No systemic symptoms such as fever or vomiting. Related Data Home Medications ?Medication ?Instructions ?Recorded ?Confirmed cyclobenzaprine 10 mg tablet 10 mg PO BID 02/08/25 02/08/25 ibuprofen 600 mg tablet 600 mg PO Q8H 02/08/25 02/08/25 losartan 100 mg tablet 100 mg PO DAILY 02/08/25 02/08/25 Previous Rx's ?Medication ?Instructions ?Recorded hydrocodone 5 mg-acetaminophen 325 1 tab PO Q6H PRN pain #14 tabs 02/02/25 mg tablet lidocaine 4 % topical patch 1 patch topical DAILY PRN pain #10 02/02/25 ea methocarbamol 500 mg tablet 500 mg PO BID PRN muscle spasm #14 02/02/25 tabs clindamycin HCl 150 mg capsule 450 mg (3 x 150 mg) PO TID 7 days 02/08/25 #63 caps nabumetone 1,000 mg tablet 1,000 mg PO BID PRN pain #14 tabs 02/08/25 Allergies Allergy/AdvReac Type Severity Reaction Status Date / Time divalproex sodium (From Allergy Intermediate Vomiting Verified 02/08/25 07:44 Depakote) Opioid HPI Opioid Management Most Recent Opioid Data: Last Pain Scale 10 02/02/25, 15:12 PFSH PFSH Social History Little interest or pleasure in doing things: not at all Feeling down, depressed, or hopeless: not at all Exam Narrative Exam Narrative: Nurses notes and vital signs reviewed and patient is not hypoxic. afebrile General: Well-appearing and in no apparent distress. Skin: Warm, dry, no pallor noted. Eye: Pupils are equal, round and EOMI. No scleral icterus. Ears, Nose, Mouth, and Throat: Oral mucosa is moist Cardiovascular: Regular Rate and Rhythm without murmur, gallop or rub. Respiratory: No accessory muscle use or respiratory distress. Lungs are clear to auscultation, no wheezing, rales or rhonchi Musculoskeletal: normal ROM GI: Abdomen is soft, non-distended. Normal bowel sounds. No tenderness to palpation. No rebound, guarding, or rigidity noted. Genitalia: mild scrotal swelling with a small 5mm x 5mm area of erythema - no palpable mass or abscess. No testicular tenderness, Normal Prehn's. Neurological: A&O x4. No cranial nerve dysfunction observed. No truncal ataxia. Moves all extremities. Sensation intact. Psychiatric: Cooperative and interactive. Normal mood and affect. Constitutional Vital Signs, click to edit/add: Last Vital Signs Temp 98.4 F 02/08/25 07:02 Pulse 117 H 02/08/25 07:02 Resp 16 02/08/25 07:02 BP 152/120 H 02/08/25 07:02 Pulse Ox 98 02/08/25 07:02 O2 Del Method Room Air 02/08/25 07:02 Course Vital Signs Vital signs: Vital Signs Temperature 98.4 F 02/08/25 07:02 Pulse Rate 117 H 02/08/25 07:02 Respiratory Rate 16 02/08/25 07:02 Blood Pressure 152/120 H 02/08/25 07:02 Pulse Oximetry 98 02/08/25 07:02 Oxygen Delivery Method Room Air 02/08/25 07:02 Temperature 98.4 F 02/08/25 07:02 Pulse Rate 117 H 02/08/25 07:02 Respiratory Rate 16 02/08/25 07:02 Blood Pressure 152/120 H 02/08/25 07:02 Pulse Oximetry 98 02/08/25 07:02 Oxygen Delivery Method Room Air 02/08/25 07:02 Medical Decision Making MDM Narrative Medical decision making narrative: Blood drawn and sent for testing. White blood cell count slightly elevated. Scrotal ultrasound was obtained. Per radiologist, negative for testicular torsion or suspicious testicular mass lesion. Suspected area of phlegmon/cellulitis at the site of clinical concern. No loculated abscess identified at this time. Patient was informed of results and given reassurance. He was prescribed clindamycin for the infection and also nabumetone for pain. He had recently been seen in the ED for rib fractures and is currently taking muscle relaxer and [place] for breakthrough pain. I told him to stop the ibuprofen that he had previously been told to take while he is taking the nabumetone. ED return if he worsens Medical Records Medical records reviewed: Yes I reviewed the patient's medical records Lab Data Lab results reviewed: Yes I reviewed the patient's lab results Labs: Lab Results 02/08/25 Range/Units 07:29 WBC 12.0 H (4.0-11.0) 10^3/uL RBC 4.81 (4.70-6.10) 10^6/uL Hgb 14.9 (14.0-18.0) g/dL Hct 43.6 (42.0-54.0) % MCV 90.6 (80.0-94.0) fL MCH 31.0 (25.9-34.0) pg MCHC 34.2 (29.9-35.2) g/dL RDW 13.2 (11.0-15.0) % Plt Count 245 (150-450) 10^3/uL MPV 10.3 (9.5-13.5) fL Neut % (Auto) 82.4 H (43.0-75.0) % Lymph % (Auto) 10.9 L (20.5-60.0) % [place] % (Auto) 5.9 (1.7-12.0) % Eos % (Auto) 0.1 L (0.9-7.0) % Baso % (Auto) 0.3 (0.2-2.0) % Neut # (Auto) 9.9 H (1.4-6.5) 10^3/uL Lymph # (Auto) 1.3 (1.2-3.8) 10^3/uL [place] # (Auto) 0.7 (0.3-0.8) 10^3/uL Eos # (Auto) 0.0 (0.0-0.7) 10^3/uL Baso # (Auto) 0.0 (0.0-0.1) 10^3/uL Abs Immat Gran (auto) 0.05 H (0.00-0.03) 10^3/uL Imm/Tot Granulo (auto) 0.4 (0.0-0.5) % Sodium 140 (136-145) mmol/L Potassium 3.4 L (3.5-5.1) mmol/L Chloride 104 (98-107) mmol/L Carbon Dioxide 24.3 (21.0-32.0) mmol/L Anion Gap 15.1 BUN 4.0 L (7.0-18.0) mg/dL Creatinine 0.57 L (0.70-1.30) mg/dL Est GFR ( Amer) >60 (>=60 mL/min/1.73m^2) Est GFR (Non-Af Amer) >60 (>=60 mL/min/1.73m^2) BUN/Creatinine Ratio 7.0 Glucose 112 H (74-106) mg/dL Lactate 1.8 (0.4-2.0) mmol/L Calcium 8.6 (8.5-10.1) mg/dL Imaging Data us scrotum: Radiologist's impression: ITS Impressions Scrotum Ultrasound 02/08/25 07:08 IMPRESSION: Negative for testicular torsion or suspicious testicular mass lesion. Suspected areas of phlegmon/cellulitis at the site of clinical concern. No loculated abscess identified at this time. Impression dictated by: Néstor Mcdonough M.D. 02/08/2025 9:14 AM Dictation Location[facility] Electronically authenticated by: [id number] Y Date: 02/08/2025 09:14 Discharge Plan Discharge Chief Complaint: Skin/Abscess/Foreign Body Clinical Impression: Cellulitis of scrotum Patient Disposition: Home, Self-Care Time of Disposition Decision: 09:20 Prescriptions / Home Meds: New clindamycin HCl 150 mg capsule 450 mg PO TID 7 Days Qty: 63 0RF nabumetone 1,000 mg tablet 1,000 mg PO BID PRN (Reason: pain) Qty: 14 0RF No Action lidocaine 4 % adhesive patch,medicated 1 patch topical DAILY PRN (Reason: pain) Qty: 10 0RF hydrocodone-acetaminophen 5-325 mg tablet 1 tab PO Q6H PRN (Reason: pain) Qty: 14 0RF methocarbamol 500 mg tablet 500 mg PO BID PRN (Reason: muscle spasm) Qty: 14 0RF ibuprofen 600 mg tablet 600 mg PO Q8H losartan 100 mg tablet 100 mg PO DAILY cyclobenzaprine 10 mg tablet 10 mg PO BID Print Language: Serbian Instructions: Cellulitis (ED), Scrotal Pain (ED) Referrals: [facility] [Primary Care Provider, Unknown] - 1 week
== END 2025-02-08 10:13 | disposition home or self-care (01) ==
PROVIDERS: Emergency Provider Emergency Medicine
DX: N49.2 Inflammatory disorders of scrotum (principal)
CPT/HCPCS: 36415; 76870; 80048; 83605; 85025; 87040; 99284